=== PATIENT | female | born 1960 | race Caucasian/White ===

== ENCOUNTER 2020-02-17 12:46 | Observation (INO) | payer BC ==
[~2020-02-17] VITALS: Ht 167.6 cm; Wt 82.6 kg
[~2020-02-17 12:46] MED LIST: ADULT LOW DOSE81 MG PO; DILTIAZEM 24HR360 M1 PO; GLUCOPHAGE XR500 MG PO; GLUCOPHAGE500 MG PO; LISINOPRIL40 MG PO; VITAMIN D400 UNI1
[2020-02-17 12:56] VITALS: BP 185/150
[2020-02-17] MEDS ORDERED: JANUMET 50-1,01 EACH PO (12:58)
[2020-02-17 13:35] LABS: ABSOLUTE BASOPHILS 0.1 thou/uL (0.0-0.2); ABSOLUTE EOSINOPHILS 0.1 thou/uL (0.0-0.7); ABSOLUTE LYMPHOCYTES 1.3 thou/uL (0.8-5.3); ABSOLUTE MONOCYTES 0.6 thou/uL (0.0-1.2); ABSOLUTE NEUTROPHILS 10.1 thou/uL (1.6-8.1); BASOPHILS 0.4 %; EOSINOPHILS 0.9 %; HEMATOCRIT 46.1 % (37.0-47.0); HEMOGLOBIN 16.1 gm/dL (12.0-15.0); LYMPHOCYTES 10.7 %; MCH 31.4 pg (26.0-34.0); MCV 89.8 fL (80.0-100.0); MONOCYTES 4.7 %; MPV 9.1 fl. (7.2-11.1); NUCLEATED RBCS 0 /100WBC; PLATELET COUNT* 264 thou/uL (150-400); POLYS 83.3 %; RBC 5.14 mil/uL (4.20-5.00); RDW-CV 13.3 % (10.5-14.5); WBC 12.2 thou/uL (4.0-11.0)
[2020-02-17 13:38] LABS: URINE BILIRUBIN NEGATIVE (Negative); URINE BLOOD NEGATIVE (Negative); URINE CLARITY CLEAR; URINE COLOR YELLOW; URINE GLUCOSE-RANDOM 1+ (Negative); URINE KETONES 2+ (Negative); URINE LEUKOCYTES-REFLEX NEGATIVE (Negative); URINE NITRITE-REFLEX NEGATIVE (Negative); URINE PROTEIN NEGATIVE (Negative); URINE UROBILINOGEN 0.2 E.U./dl (0.2-1.0)
[2020-02-17 13:41] LABS: CALCIUM 9.4 mg/dL (8.5-10.1); CREATININE 0.9 mg/dL (0.6-1.3); POTASSIUM 3.1 mmol/L (3.5-5.1)
[2020-02-17 13:45] LABS: ALBUMIN 4.5 g/dL (3.4-5.0); TOTAL BILIRUBIN 0.7 mg/dL (<0.1-1.0); TOTAL PROTEIN 7.9 g/dL (6.4-8.2)
--- NOTE | 2020-02-17 16:38 | EKG ---
[place] [address] ELECTROCARDIOGRAM REPORT Name: MANISHAMITZI SÁNCHEZ Room: [address] M.R.#: [id number] Admission: 02/17/20 Attend Phys: Deep Starks, Discharge: Date of : 56 Date of Service: 02/17/20 1259 Report #: [id number] THIS REPORT FOR: //name// [facility] ED Test Date: 2020-02-17 Test Time: 12:59:55 Pat Name: MITZI DYRE Department: Room: [facility] Gender: F Sales Promotion Coordinator: ROSA ELENA : 1960 Requested By: Ryan Blum Order Number: [id number] MD: Nate Arellano Measurements Intervals [place] Rate: 83 P: 40 MN: 162 QRS: 2 QRSD: 90 T: 28 QT: 404 QTc: 475 Interpretive Statements Sinus rhythm No previous ECG available for comparison Electronically Signed On 02-17-2020 16:36:32 CDT by Nate Arellano [email or web address] <ELECTRONICALLY SIGNED> By: Nate Arellano MD, [facility] 02/17/20 1636 [id number] Nate rAellano MD, FAC /EPI
[2020-02-17 17:14] VITALS: BP 166/79
[2020-02-17 17:45] VITALS: BP 147/80
--- NOTE | 2020-02-17 19:02 | NUR ---
PT. ADMITTED TO FLOOR FROM ER. VSS, AOX4, NSR ON MONITOR. PAIN AND NAUSEA UNDER CONTROL. ADMISSION INTERVENTIONS COMPLETED. IVF INFUSING WITHOUT COMPLICATIONS. PT. ORIENTED TO ROOM AND USE OF CALL LIGHT. PT ENCOURAGED TO CALL FOR ASSISTANCE WITH TRANSFER TO BED SIDE COMMODE. PT. ON PHONE WITH FAMILY AND IN STABLE CONDITION AT THIS TIME
[2020-02-17] MEDS ORDERED: LYRICA150 MG PO (19:36)
[2020-02-17 20:00] VITALS: BP 137/70
[2020-02-18] VITALS: BP 102/59
[2020-02-18 04:00] VITALS: BP 107/65
--- NOTE | 2020-02-18 05:54 | NUR ---
PATIENT SLEPT MOST OF THE NIGHT. IV FLUIDS CONTINUE AT 100 ML/HR. PATIENT WAS GIVEN NAUSEA MEDICINE ONCE THIS SHIFT. PATIENT HAS HAD SOME DIZZINESS BUT NOT BAD. WILL CONTINUE TO MONITOR.
[2020-02-18 08:00] VITALS: BP 122/72
[2020-02-18 12:00] VITALS: BP 116/78
--- NOTE | 2020-02-18 14:58 | NUR ---
Pt is A&O. Resides at home with her . Independent. No DME. Hx of HH last year after surgery, does not recall which agency. No hx of SNF. PT eval pending. Goal is home at dc, Pt does not anticipate any dc needs. CM to f/u with Pt post PT eval to discuss recommendations. Following.
[2020-02-18 16:00] VITALS: BP 122/70
--- NOTE | 2020-02-18 17:27 | NUR ---
VSS, A&OX4, NSR ON TELE, ROOM AIR, ACCUCHECKS, DIZZY WHEN AMBULATING, PIVOTS TO BEDSIDE COMMODE WITH STAND BY ASSIST, HOURLY ROUNDING PERFORMED, POSSESSIONS AND CALL LIGHT WITHIN REACH.
[2020-02-18 21:30] VITALS: BP 151/90
[2020-02-19] VITALS: BP 165/90
[2020-02-19 02:07] LABS: GLYCOHEMOGLOBIN (HGB A1C) 7.1 % (4.8-5.6)
[2020-02-19 04:00] VITALS: BP 154/81
--- NOTE | 2020-02-19 04:48 | NUR ---
PATIENT HAS SLEPT WELL THROUGHOUT MOST OF THE NIGHT. VSS ON RA. NO C/O DIZZINESS. PATIENT UP WITH ASSIST X 1 TO THE BSC. MEDICATIONS GIVEN ORDERED AND CHARTED. ASSESSMENT CHARTED. IV IN LEFT AC-NS @ 100ML/HR. PATIENT INSTRUCTED TO USE CALL LIGHT WHEN NEEDING ASSISTANCE. HOURLY ROUNDS MADE. WILL CONTINUE WITH PLAN OF CARE AND NURSING TO MONITOR.
[2020-02-19] MEDS ORDERED: MECLIZINE HCL25 M1 PO (07:53)
[2020-02-19 08:18] VITALS: BP 152/83
[2020-02-19 10:21] VITALS: BP 152/83
--- NOTE | 2020-02-19 12:20 | NUR ---
IV AND TELE DISCONTINUED AND PT DISCHARGED TO HOME.
== END 2020-02-19 13:00 | disposition home or self-care (01) ==
LOC: M.ERS 12:46 → M.TBA-ER 14:44 → M.2W 14:44
PROVIDERS: Physician Assistant; ADMIT Internal Medicine
DX: H81.391 Other peripheral vertigo, right ear (principal); E87.6 Hypokalemia; R11.2 Nausea with vomiting, unspecified; I16.0 Hypertensive urgency; E11.9 Type 2 diabetes mellitus without complications